=== PATIENT | male | born 1970 | race Caucasian/White ===

== ENCOUNTER 2017-04-06 15:09 | Observation (INO) | payer SELFPAY ==
[2017-04-06 18:10] VITALS: BP 119/77; PULSE 59; RESP 24; TEMP 98.5; O2SAT 98
[2017-04-06] MEDS ORDERED: ONDANSETRON HCL 4 MG/2 ML VIAL IV PUSH PRN ×2 (18:15)
[2017-04-06] MEDS ORDERED: SODIUM CHLORIDE 0.9% FLUSH 10 ML FLUSH IV FLUSH PRN ×2 (18:15)
[2017-04-06] MEDS ORDERED: ACETAMINOPHEN 500 MG CPLT PO PRN ×2 (19:00)
[2017-04-06] MEDS ORDERED: NITROGLYCERIN 0.4 MG SL 25 TABS/BTL SL PRN ×2 (19:00)
[2017-04-06 20:23] VITALS: BP 102/53; PULSE 61; RESP 19; TEMP 97.8; O2SAT 97
[2017-04-06] MEDS: SODIUM CHLORIDE 0.9% FLUSH 10 ML FLUSH IV FLUSH SCH ×2 (21:00)
[2017-04-06 23:44] VITALS: BP 102/63; PULSE 51; RESP 20; TEMP 97; O2SAT 97
[2017-04-07 00:38] VITALS: PULSE 45
[2017-04-07 08:00] VITALS: PULSE 53
--- NOTE | 2017-04-07 08:27 | HHI.HP ---
HPI Primary Care Physician No Primary Care Physician Chief Complaint Chest pain History of Present Illness This is a 46-year-old male that presents to ED via [facility] as he was transferred from [place] ED to evaluate chest discomforts. He describes left-sided chest pain that has been intermittent since yesterday at noon. He has a difficult time describing the characteristic of discomfort. Episodes lasting 15-20 seconds. Occasional shortness of breath. No nausea or diaphoresis. Cannot recall having this before. Denies recent illnesses. Denies fevers or chills. Found nothing to bring on his symptoms. Certain movements tend to worsen it. Review of Systems General: Patient denies fevers, chills recent, and recent travel HEENT: Patient denies headache, sore throat, difficulty swallowing. Cardiovascular: Has the chest discomfort as mentioned above. Denies sensation of heart beating rapidly or irregularly. No syncope. Denies diaphoresis. Respiratory: Occasional shortness of breath. Denies inspirational chest discomfort. Denies coughing wheezing or hemoptysis. GI: Patient denies nausea, vomiting, diarrhea, abdominal pain, bloody stools. Musculoskeletal: Patient denies joint pain or edema. Denies calf pain or edema. Neurovascular: Patient denies numbness, tingling, weakness in extremities. Denies headache. Endocrine: Denies polyuria and polydipsia. Hematologic: Denies easy bruising. Skin: Denies rash or itching. Past Family Social History Allergies: Coded Allergies: No Known Allergies (Verified Allergy, Unknown, 04/06/17) Past Medical History Tobacco abuse. Denies hypertension, hyperlipidemia, diabetes, and known CAD. Past Surgical History Back surgery and right knee surgery. Reported Medications Reported Meds & Active Scripts Active No Active Prescriptions or Reported Medications Active Ordered Medications Current Medications Medications (Trade) Dose Ordered Sig/Katerina Route Start Time Stop Time Status Last Admin (NS Flush) 2 ml UNSCH PRN IV FLUSH 04/06/17 18:15 (NS Flush) 2 ml BID IV FLUSH 04/06/17 21:00 04/06/17 21:00 (Tylenol) 500 mg Q4H PRN PO 04/06/17 19:00 04/06/17 21:35 (Zofran Inj) 4 mg Q6H PRN IV PUSH 04/06/17 18:15 (Nitrostat Sl) 0.4 mg Q5M PRN SL 04/06/17 19:00 (Aspirin) 325 mg DAILY PO 04/07/17 09:00 Family History States that his father at age 58 of a heart attack. Social History Smokes approximately one pack of cigarettes a day. Drinks on average 2-3 beers a night. Denies illicit drugs however toxicology screen is positive for cocaine. Physical Exam Vital Signs Vital Signs Date Time Temp Pulse Resp B/P (MAP) Pulse Ox O2 Delivery O2 Flow Rate FiO2 04/07/17 05:30 Nasal Cannula 2.00 04/07/17 00:38 45 04/06/17 23:44 97.0 51 20 102/63 (76) 97 04/06/17 20:23 97.8 61 19 102/53 (69) 97 04/06/17 18:10 98.5 59 24 119/77 (91) 98 Physical Exam GENERAL: This is a well-nourished, well-developed patient, in no apparent distress. Patient speaks in clear complete sentences. Patient is pleasant. HEENT: Head is atraumatic and normocephalic. Neck is supple without lymphadenopathy and trachea is midline. No JVD or carotid bruits. CARDIOVASCULAR: Regular rate and rhythm without murmurs, gallops, or rubs. RESPIRATORY: Clear to auscultation. Breath sounds equal bilaterally. No wheezes , rales, or rhonchi. Chest wall is nontender when palpating however discomfort is reproduced with twisting of the torso. No use of accessory muscles. GASTROINTESTINAL: Abdomen is nontender, nondistended. Abdomen soft. No obvious pulsatile mass or bruit. No CVA tenderness. Strong femoral pulses bilaterally. Normal bowel sounds in all quadrants. MUSCULOSKELETAL: Patient is moving upper and lower extremities freely. No calf tenderness or edema, no Homans sign. Strong pulses in upper and lower extremities. NEUROLOGICAL: Patient is alert and oriented. Cranial nerves 2-12 are grossly intact. No focal deficits and speech is clear. SKIN: No rash and turgor is normal. Laboratory Laboratory Tests Test 04/06/17 18:20 Troponin I LESS THAN 0.02 Imaging Chest x-ray reveals nothing acute. Course EKG is sinus bradycardia without significant ST segment depressions or elevations. Caprini VTE Risk Assessment Caprini VTE Risk Assessment: No/Low Risk (score <= 1) Caprini Risk Assessment Model Point Value = 1 Point Value = 2 Point Value = 3 Point Value = 5 Age 41-60 Minor surgery BMI > 25 kg/m2 Swollen legs Varicose veins or History of unexplained or recurrent spontaneous Oral contraceptives or hormone replacement Sepsis (< 1 month) Serious lung disease, including pneumonia (< 1 month) Abnormal pulmonary function Acute myocardial infarction Congestive heart failure (< 1 month) History of inflammatory bowel disease Medical patient at bed rest Age 61-74 Arthroscopic surgery Major open surgery (> 45 min) Laparoscopic surgery (> 45 min) Malignancy Confined to bed (> 72 hours) Immobilizing plaster cast Central venous access Age >= 75 History of VTE Family history of VTE Factor V Leiden Prothrombin [id number] Lupus anticoagulant Anticardiolipin antibodies Elevated serum homocysteine Heparin-induced thrombocytopenia Other congenital or acquired thrombophilia Stroke (< 1 month) Elective arthroplasty Hip, pelvis, or leg fracture Acute spinal cord injury (< 1 month) Prophylaxis Regimen Total Risk Factor Score Risk Level Prophylaxis Regimen 0-1 Low Early ambulation 2 Moderate Order ONE of the following: *Sequential Compression Device (SCD) *Heparin 5000 units SQ BID 3-4 Higher Order ONE of the following medications: *Heparin 5000 units SQ TID *Enoxaparin/Lovenox 40 mg SQ daily (WT < 150 kg, CrCl > 30 mL/min) *Enoxaparin/Lovenox 30 mg SQ daily (WT < 150 kg, CrCl > 10-29 mL/min) *Enoxaparin/Lovenox 30 mg SQ BID (WT < 150 kg, CrCl > 30 mL/min) AND/OR *Sequential Compression Device (SCD) 5 or more Highest Order ONE of the following medications: *Heparin 5000 units SQ TID (Preferred with Epidurals) *Enoxaparin/Lovenox 40 mg SQ daily (WT < 150 kg, CrCl > 30 mL/min) *Enoxaparin/Lovenox 30 mg SQ daily (WT < 150 kg, CrCl > 10-29 mL/min) *Enoxaparin/Lovenox 30 mg SQ BID (WT < 150 kg, CrCl > 30 mL/min) AND *Sequential Compression Device (SCD) Assessment and Plan Assessment and Plan * Atypical chest pain: Patient has had serial cardiac enzymes and EKGs for ruling out purposes. His discomfort appears to be musculoskeletal. He has been seen by Dr. William Valerio of cardiology in the chest pain center. We will give Toradol. We will get a stress test. If stress test is nonischemic he 'll be discharged home with instructions to follow-up with a primary care physician. * Tobacco abuse: Patient has been counseled on the importance of smoking cessation. Patient is stable at this time. He is agreeable to this plan. Lenard Owens Apr 07, 2017 08:27
[2017-04-07] MEDS ORDERED: KETOROLAC TROMETHAMINE 30 MG/ML (IVP) VIAL IVP ONE ×2 (09:00)
[2017-04-07] MEDS ORDERED: ASPIRIN 325 MG TAB PO SCH ×2 (09:00)
[2017-04-07] MEDS: SODIUM CHLORIDE 0.9% FLUSH 10 ML FLUSH IV FLUSH SCH ×2 (09:02)
[2017-04-07 09:08] VITALS: BP 95/66; PULSE 55; RESP 18; TEMP 96.1; O2SAT 96
[2017-04-07] MEDS ORDERED: REGADENOSON INJ 0.4 MG/5 ML SYR ONE ×2 (12:29)
[2017-04-07] MEDS ORDERED: MORPHINE SULFATE 4 MG/ML INJ IV PUSH ONE ×2 (12:45)
--- NOTE | 2017-04-07 13:47 | RADRPT ---
EXAM DATE/TIME: 04/07/2017 11:37 [facility] COMPARISON: No previous studies available for comparison. INDICATIONS : Mid chest pain for one day. Angina. DOSE: 27.2 mCi Tc99m Myoview at stress. 8.6 mCi Tc99m Myoview at rest. 0.4 mg Lexiscan STRESS SYMPTOMS: Lightheaded. EJECTION FRACTION: 52% MEDICAL HISTORY : Hypertension. Diabetes. Coronary artery disease SURGICAL HISTORY : None. ENCOUNTER: Initial ACUITY: 2 days PAIN SCALE: 2/10 LOCATION: chest discomfort TECHNIQUE: The patient underwent pharmacologic stress with infusion of prescribed dose. Continuous ECG tracing was monitored during stress. Gated SPECT imaging was performed after stress and conventional SPECT i maging was performed at rest. The examination was performed on a SPECT/CT scanner, both attenuation and non-corrected datasets were reviewed. FINDINGS: DISTRIBUTION: The maximum perfused segment at stress is in the septal wall. PERFUSION STUDY: The pattern of perfusion at stress is within normal limits. GATED STUDY: There is intact wall motion and thickening without hypokinetic or dyskinetic segments. CONCLUSION: Unremarkable myocardial perfusion exam RISK CATEGORY: low Junito Delcid MD on April 07, 2017 at 13:45 Board Certified Radiologist. This report was verified electronically.
[2017-04-07 14:22] VITALS: BP 111/56; PULSE 53; RESP 20; TEMP 97.3; O2SAT 98
--- NOTE | 2017-04-07 14:24 | HHI.DCPOC ---
Discharge Care Plan Diagnosis: (1) Chest pain (2) Tobacco abuse (3) Cocaine abuse Goals to Promote Your Health * To prevent worsening of your condition and complications * To maintain your health at the optimal level Directions to Meet Your Goals Take your medications as prescribed Follow your dietary instruction Follow activity as directed Keep your appointments as scheduled Take your immunizations and boosters as scheduled If your symptoms worsen call your PCP, if no PCP go to Urgent Care Center or Emergency Room Smoking is Dangerous to Your Health. Avoid second hand smoke Call the 24-hour hour crisis hotline for domestic abuse at Lenard Owens Apr 07, 2017 14:24
--- NOTE | 2017-04-07 14:24 | HHI.DCPOC ---
Discharge Care Plan Diagnosis: (1) Chest pain (2) Tobacco abuse (3) Cocaine abuse Goals to Promote Your Health * To prevent worsening of your condition and complications * To maintain your health at the optimal level Directions to Meet Your Goals Take your medications as prescribed Follow your dietary instruction Follow activity as directed Keep your appointments as scheduled Take your immunizations and boosters as scheduled If your symptoms worsen call your PCP, if no PCP go to Urgent Care Center or Emergency Room Smoking is Dangerous to Your Health. Avoid second hand smoke Call the 24-hour hour crisis hotline for domestic abuse at Lenard Owens Apr 07, 2017 14:24
--- NOTE | 2017-04-07 14:24 | HHI.DCPOC ---
Discharge Care Plan Diagnosis: (1) Chest pain (2) Tobacco abuse (3) Cocaine abuse Goals to Promote Your Health * To prevent worsening of your condition and complications * To maintain your health at the optimal level Directions to Meet Your Goals Take your medications as prescribed Follow your dietary instruction Follow activity as directed Keep your appointments as scheduled Take your immunizations and boosters as scheduled If your symptoms worsen call your PCP, if no PCP go to Urgent Care Center or Emergency Room Smoking is Dangerous to Your Health. Avoid second hand smoke Call the 24-hour hour crisis hotline for domestic abuse at Lenard Owens Apr 07, 2017 14:24
--- NOTE | 2017-04-08 08:15 | EKG ---
Date Performed: 04/06/2017 Time Performed: 18:28:48 PTAGE: 46 years EKG: SINUS BRADYCARDIA BORDERLINE ECG PREVIOUS TRACING : 04/06/2017 15.24 Since previous tracing, no significant change noted DOCTOR: William Valerio Interpretating Date/Time 04/08/2017 08:14:36
--- NOTE | 2017-04-08 08:20 | TR ---
Date Performed: 04/07/2017 Time Performed: 12:38:07 DOCTOR: William Valerio DRUG LIST: CLINICAL HISTORY: REASON FOR TEST: REASON FOR ENDING: OBSERVATION: CONCLUSION: Lexiscan stress test was performed under standard four minute protocol. Radionuclid e was injected one minute prior to ending the test. No electrocardiographic abormalities were present to suggest ischemia. Nuclear imaging and interpretation are pending. COMMENTS:
--- NOTE | 2017-04-08 08:21 | TR ---
Date Performed: 04/07/2017 Time Performed: 08:23:43 DOCTOR: William Valerio DRUG LIST: CLINICAL HISTORY: REASON FOR TEST: Chest pain REASON FOR ENDING: OBSERVATION: CONCLUSION: ATTEMPTED BERRY PROTOCOL. NO CP. TEST STOPPED SECONDARY TO SOB AND BACK PAIN.Maximum UN=624 % Max HR Achieved=60.0% Maximum YX=257/86 Total Exercise Time=6:43 COMMENTS: Non-diagnostic test due to failure to reach target HR. No ST changes at sub-maximal
--- NOTE | 2017-04-08 08:21 | TR ---
Date Performed: 04/07/2017 Time Performed: 08:23:43 DOCTOR: William Valerio DRUG LIST: CLINICAL HISTORY: REASON FOR TEST: Chest pain REASON FOR ENDING: OBSERVATION: CONCLUSION: ATTEMPTED BERRY PROTOCOL. NO CP. TEST STOPPED SECONDARY TO SOB AND BACK PAIN.Maximum QC=122 % Max HR Achieved=60.0% Maximum IG=186/86 Total Exercise Time=6:43 COMMENTS: Non-diagnostic test due to failure to reach target HR. No ST changes at sub-maximal
--- NOTE | 2017-04-08 08:21 | TR ---
Date Performed: 04/07/2017 Time Performed: 08:23:43 DOCTOR: William Valerio DRUG LIST: CLINICAL HISTORY: REASON FOR TEST: Chest pain REASON FOR ENDING: OBSERVATION: CONCLUSION: ATTEMPTED BERRY PROTOCOL. NO CP. TEST STOPPED SECONDARY TO SOB AND BACK PAIN.Maximum YX=487 % Max HR Achieved=60.0% Maximum XR=940/86 Total Exercise Time=6:43 COMMENTS: Non-diagnostic test due to failure to reach target HR. No ST changes at sub-maximal
== END 2017-04-07 16:34 | disposition home or self-care (01) ==
LOC: NEDDLT 17:53 → NEPGCP 18:03
PROVIDERS: ADMIT Internal Medicine Cardiovascular Disease; ATTEND Internal Medicine Cardiovascular Disease
DX: R07.89 Other chest pain (principal); R94.31 Abnormal electrocardiogram [ECG] [EKG]; F14.10 Cocaine abuse, uncomplicated; F17.210 Nicotine dependence, cigarettes, uncomplicated
CPT/HCPCS: 71010; 78452; 80053; 80307; 81001; 82550; 82552; 83735; 84484; 85025; 85379; 85610; 85730; 93005; 93017; 96361; 96374; 96375; 99285; A9502; G0378; J1885; J2270; J2785; J7030